=== PATIENT | female | born 1945 | race Caucasian/White ===

== ENCOUNTER 2017-02-06 16:14 | Outpatient (CLI) | payer MEDICARE | END 2017-02-06 16:15 | LOC: LABRHC 16:14 | PROVIDERS: ATTEND Physician Assistant | DX: R30.0 Dysuria (principal) | CPT/HCPCS: 87086; 87186 ==

== ENCOUNTER 2018-08-01 17:04 | Outpatient (CLI) | payer MEDICARE | END 2018-08-01 17:05 | LOC: LABRHC 17:04 | PROVIDERS: ATTEND Physician Assistant | DX: N39.0 Urinary tract infection, site not specified (principal) | CPT/HCPCS: 87086 ==